=== PATIENT | female | born 1930 | race American Indian/Alaskan Native ===

== ENCOUNTER 2020-04-03 12:49 | Observation (INO) | payer MEDICARE ==
--- NOTE | 2020-04-03 13:52 | Emergency Department Report ---
HPI - General Chief Complaint: Recheck/Abnormal Lab/Rx Time Seen by Provider: 04/03/20 13:15 - HPI HPI: This is an 89-year-old female who presents to the emergency department via EMS from her [facility] facility for evaluation of abnormal labs. The patient has a history of endometrial cancer, coronary artery disease, CHF, chronic kidney disease, dementia, hypertension, Parkinson's disease and is a poor historian. She has labs with her that were drawn and resulted from today that shows a hemoglobin of 5. ED Past Medical Hx - Past Medical History Previous Medical History?: Yes Hx Hypertension: Yes Hx CVA: No Hx Heart Attack/AMI: No Hx Congestive Heart Failure: Yes Hx Diabetes: No Hx Deep Vein Thrombosis: No Hx Pulmonary Embolism: No Hx GERD: No Hx Liver Disease: No Hx Renal Disease: No Hx of Cancer: Yes (Endometrial) Hx Sickle Cell Disease: No Hx Arthritis: Yes Hx Headaches / Migraines: No Hx Seizures: No Hx Kidney Stones: No Hx Psychiatric Treatment: Yes Hx Asthma: No Hx COPD: Yes Hx Tuberculosis: No Hx Dementia: Yes Hx HIV: No Additional medical history: hx of Parkinson's Disease,anemia, chronic kidney disease, dementia, abnormal posture, contracture left and right hand, artherosc lerotic heart disease - Social History Smoking Status: Unknown if ever smoked - Medications Home Medications: Home Medications Medication Instructions Recorded Confirmed Last Taken Type Megestrol Acetate [Megace] 400 mg PO DAILY 30 Days ml 01/18/16 05/03/18 Unknown Rx Metoprolol [Lopressor TAB] 25 mg PO BID #60 tablet 05/10/18 Unknown Rx ED Review of Systems ROS: Stated complaint: LOW H&H Other details as noted in HPI Comment: Unobtainable due to pts medical conditions Physical Exam - Physical Exam Physical Exam: GENERAL: The patient is well-developed well-nourished. HENT: Normocephalic. Atraumatic. Patient has moist mucous membranes. EYES: Extraocular motions are intact. Pale conjunctiva. NECK: Supple. Trachea is midline. CHEST/LUNGS: Clear to auscultation. There is no respiratory distress noted. HEART/CARDIOVASCULAR: Regular. There is no tachycardia. ABDOMEN: Abdomen is soft, nontender. Patient has normal bowel sounds. SKIN: Skin is warm and dry. NEURO: Patient is awake but nonverbal. Withdraws from painful stimuli. MUSCULOSKELETAL: There is no tenderness to palpation. Contracted bilateral upper extremities. ED Course - Reevaluation(s) Reevaluation #1: 04/03/20 19:54 Lab Results 04/03/20 04/03/20 04/03/20 Range/Units 15:07 15:07 15:07 WBC 12.2 H (4.5-11.0) K/mm3 RBC 2.03 L (3.65-5.03) M/mm3 Hgb 5.4 L* (10.1-14.3) gm/dl Hct 17.1 L* (30.3-42.9) % MCV 84 (79-97) fl MCH 27 L (28-32) pg MCHC 32 (30-34) % RDW 20.0 H (13.2-15.2) % Plt Count 399 (140-440) K/mm3 Lymph % (Auto) 6.4 L (13.4-35.0) % [place] % (Auto) 6.3 (0.0-7.3) % Eos % (Auto) 0.0 (0.0-4.3) % Baso % (Auto) 0.1 (0.0-1.8) % Lymph # (Auto) 0.8 L (1.2-5.4) K/mm3 [place] # (Auto) 0.8 (0.0-0.8) K/mm3 Eos # (Auto) 0.0 (0.0-0.4) K/mm3 Baso # (Auto) 0.0 (0.0-0.1) K/mm3 Seg Neutrophils % 87.2 H (40.0-70.0) % Seg Neutrophils # 10.6 H (1.8-7.7) K/mm3 PT 14.8 (12.2-14.9) Sec. INR 1.15 H (0.87-1.13) APTT 27.2 (24.2-36.6) Sec. Sodium 135 L (137-145) mmol/L Potassium 5.2 H (3.6-5.0) mmol/L Chloride 97.9 L (98-107) mmol/L Carbon Dioxide 28 (22-30) mmol/L Anion Gap 14 mmol/L BUN 38 H (7-17) mg/dL Creatinine 0.8 (0.6-1.2) mg/dL Estimated GFR > 60 ml/min BUN/Creatinine Ratio 48 % Glucose 126 H (65-100) mg/dL Calcium 9.5 (8.4-10.2) mg/dL Magnesium 2.60 H (1.7-2.3) mg/dL Total Bilirubin < 0.20 (0.1-1.2) mg/dL AST 22 (5-40) units/L ALT 21 (7-56) units/L Alkaline Phosphatase 98 (35-129) units/L Total Protein 7.0 (6.3-8.2) g/dL Albumin 2.0 L (3.9-5) g/dL Albumin/Globulin Ratio 0.4 % Blood Type Antibody Screen Crossmatch 04/03/20 Range/Units 15:07 WBC (4.5-11.0) K/mm3 RBC (3.65-5.03) M/mm3 Hgb (10.1-14.3) gm/dl Hct (30.3-42.9) % MCV (79-97) fl MCH (28-32) pg MCHC (30-34) % RDW (13.2-15.2) % Plt Count (140-440) K/mm3 Lymph % (Auto) (13.4-35.0) % [place] % (Auto) (0.0-7.3) % Eos % (Auto) (0.0-4.3) % Baso % (Auto) (0.0-1.8) % Lymph # (Auto) (1.2-5.4) K/mm3 [place] # (Auto) (0.0-0.8) K/mm3 Eos # (Auto) (0.0-0.4) K/mm3 Baso # (Auto) (0.0-0.1) K/mm3 Seg Neutrophils % (40.0-70.0) % Seg Neutrophils # (1.8-7.7) K/mm3 PT (12.2-14.9) Sec. INR (0.87-1.13) APTT (24.2-36.6) Sec. Sodium (137-145) mmol/L Potassium (3.6-5.0) mmol/L Chloride (98-107) mmol/L Carbon Dioxide (22-30) mmol/L Anion Gap mmol/L BUN (7-17) mg/dL Creatinine (0.6-1.2) mg/dL Estimated GFR ml/min BUN/Creatinine Ratio % Glucose (65-100) mg/dL Calcium (8.4-10.2) mg/dL Magnesium (1.7-2.3) mg/dL Total Bilirubin (0.1-1.2) mg/dL AST (5-40) units/L ALT (7-56) units/L Alkaline Phosphatase (35-129) units/L Total Protein (6.3-8.2) g/dL Albumin (3.9-5) g/dL Albumin/Globulin Ratio % Blood Type B POSITIVE Antibody Screen Negative Crossmatch See Detail Reevaluation #2: 04/03/20 20:15 Vital Signs 04/03/20 04/03/20 04/03/20 15:37 19:31 20:01 Temperature 97.9 F Pulse Rate 100 H 109 H 118 H Respiratory 16 17 23 Rate Blood Pressure 109/64 134/65 O2 Sat by Pulse 94 100 100 Oximetry - EJ/Peripheral Line Arm R Time Out Performed: Yes Indications: nurses unable to establis Skin Cleansed in Sterile Fashion: Yes Size: 22 Dressing Placed: Tegaderm, tape Patient Tolerated Procedure: well ED Medical Decision Making - Lab Data Result diagrams: 04/03/20 15:07 04/03/20 15:07 - Medical Decision Making Patient was sent in from her nursing facility with abnormal labs from this morning that showed a hemoglobin of 5 and hyperkalemia with a potassium of 5.7. The repeat labs done in the emergency department shows a hemoglobin of 5.4 and the hyperkalemia is at 5.2. Patient will most likely need 2 units of packed red blood cells for transfusion but we will start with 1. The rest of the labs have been mostly unremarkable. Vital signs reassuring throughout her ED course thus far. The patient has been accepted for admission by the hospitalist, Dr. Mancilla. Critical Care Time: Yes Critical care time in (mins) excluding proc time.: 35 Critical care attestation.: If time is entered above; I have spent that time in minutes in the direct care of this critically ill patient, excluding procedure time. Critical care time was spent on this patient in doing her initial evaluation, multiple reevaluations, ordering and interpretation of labs and imaging, orderi ng of blood for transfusion. Critical Care Time: 35 minutes ED Disposition Clinical Impression: Endometrial cancer, Anemia requiring transfusions, Hyperkalemia Dementia Qualifiers: Dementia type: unspecified type Dementia behavioral disturbance: without behavioral disturbance Qualified Code(s): F03.90 - Unspecified dementia without behavioral disturbance Disposition: DC-09 OP ADMIT IP TO THIS HOSP Is pt being admited?: Yes Condition: Serious Time of Disposition: 16:12
[2020-04-03 15:38] LABS: Basophils % (Auto) 0.1 % (0.0-1.8); Lymphocytes # (Auto) 0.8 K/mm3 (1.2-5.4); Lymphocytes % (Auto) 6.4 % (13.4-35.0); Mean Corpuscular HGB Conc 32 % (30-34); Mean Corpuscular Volume 84 fl (79-97); Monocytes # (Auto) 0.8 K/mm3 (0.0-0.8); Monocytes % (Auto) 6.3 % (0.0-7.3); Platelet Count 399 K/mm3 (140-440); Red Blood Count 2.03 M/mm3 (3.65-5.03)
[2020-04-03 15:47] LABS: Alanine Aminotransferase 21 units/L (7-56); BUN/Creatinine Ratio 48; Blood Urea Nitrogen 38 mg/dL (7-17); Calcium 9.5 mg/dL (8.4-10.2); Hemolysis Index 2
[2020-04-03 15:51] LABS: INR 1.15 (0.87-1.13); Partial Thromboplastin Time 27.2 Sec. (24.2-36.6)
[2020-04-03 15:55] LABS: Hematocrit 17.1 % (30.3-42.9); Hemoglobin 5.4 gm/dl (10.1-14.3)
[2020-04-03] MEDS ORDERED: SODIUM CHLORIDE 0.9% 500 ML 500 ML IV ONE ×2 (15:56→21:54)
[2020-04-03] MEDS ORDERED: SODIUM CHLORIDE 0.9% 500 ML 500 ML ONE (20:03)
[2020-04-03] MEDS ORDERED: MEGESTROL ACETATE 400 MG PO SCH (21:45)
--- NOTE | 2020-04-03 21:48 | History and Physical Report ---
History of Present Illness Date of examination: 04/03/20 Date of admission: 04/03/20 18:02 Chief complaint: Sent from [facility] for low hemoglobin and hematocrit History of present illness: 89-year-old female presents to the emergency department via EMS from [facility] for evaluation of low hemoglobin and hematocrit. Patient has history of endometrial cancer, coronary artery disease, CHF, chronic kidney disease, dementia and hypertension. Patient also has parkinsonism. Patient is a poor historian. History gathered from the chart from [facility]. Patient lying in bed comfortably. Not complaining. - Past Medical History Previous Medical History?: Yes --Hypertension: Yes --Congestive Heart Failure: Yes --Endometrial cancer (Endometrial) --Arthritis: Yes --Psychiatric Treatment: Yes --COPD: Yes --Dementia: Yes Additional medical history: hx of Parkinson's Disease,anemia, chronic kidney disease, dementia, abnormal posture, contracture left and right hand, artherosclerotic heart disease -- surgical history Not available - Social History Smoking Status: Unknown if ever smoked Family history unknown - Medications Home Medications: Home Medications Medication Instructions Recorded Confirmed Last Taken Type Megestrol Acetate [Megace] 400 mg PO DAILY 30 Days ml 01/18/16 05/03/18 Unknown Rx Metoprolol [Lopressor TAB] 25 mg PO BID #60 tablet 05/10/18 Unknown Rx Review of Systems Constitutional generalized weakness HEENT no sore throat no post nasal drip no diplopia Neck no neck stiffness no lymph gland enlargement Chest and lungs no shortness of breath cough or wheezing CVS no chest pain no diaphoresis no palpitations GI no nausea no vomiting no diarrhea Genitourinary system no dysuria no flank pain Musculoskeletal system no muscle pains no joint pains [employer]GER no syncope no seizures Skin no rash no itching Psychiatric no depression no homicidal or suicidal tendencies Hematologic anemia requiring blood transfusions Endocrine no polydipsia no polyuria no cold intolerance no heat intolerance Medications and Allergies Allergies Allergy/AdvReac Type Severity Reaction Status Date / Time No Known Allergies Allergy Verified 01/16/16 23:42 Home Medications Medication Instructions Recorded Confirmed Last Taken Type Megestrol Acetate [Megace] 400 mg PO DAILY 30 Days ml 01/18/16 05/03/18 Unknown Rx Metoprolol [Lopressor TAB] 25 mg PO BID #60 tablet 05/10/18 Unknown Rx Active Meds: Active Medications Metoprolol Tartrate (Metoprolol) 25 mg PO BID [facility] Miscellaneous Medication (Megestrol Acetate [Megace]) 400 mg PO DAILY [facility] Exam - Constitutional Vitals: Temp Pulse Resp BP Pulse Ox 97.9 F 101 H 17 131/65 97 04/03/20 20:01 04/03/20 21:21 04/03/20 21:21 04/03/20 21:21 04/03/20 21:21 General appearance: Present: no acute distress, well-nourished - EENT Eyes: Present: PERRL ENT: hearing intact, clear oral mucosa, other (Pale mucous membranes) - Neck Neck: Present: supple, normal ROM - Respiratory Respiratory effort: normal Respiratory: bilateral: CTA - Cardiovascular Heart rate: 78 Rhythm: regular Heart Sounds: Present: S1 & S2. Absent: rub, click - Extremities Extremities: pulses symmetrical, No edema Peripheral Pulses: within normal limits - Abdominal General gastrointestinal: Present: soft, non-tender, non-distended, normal bowel sounds Female genitourinary: Present: normal - Integumentary Integumentary: Present: clear, warm, dry - Musculoskeletal Musculoskeletal: strength equal bilaterally, generalized weakness - Psychiatric Psychiatric: depressed, other (Lethargic) - Neurologic Neurologic: CNII-XII intact, moves all extremities - Allied Health Allied health notes reviewed: nursing, case management Results - Labs CBC & Chem 7: 04/03/20 15:07 04/03/20 15:07 Labs: Laboratory Last Values WBC 12.2 K/mm3 (4.5-11.0) H 04/03/20 15:07 RBC 2.03 M/mm3 (3.65-5.03) L 04/03/20 15:07 Hgb 5.4 gm/dl (10.1-14.3) L* 04/03/20 15:07 Hct 17.1 % (30.3-42.9) L* 04/03/20 15:07 MCV 84 fl (79-97) 04/03/20 15:07 MCH 27 pg (28-32) L 04/03/20 15:07 MCHC 32 % (30-34) 04/03/20 15:07 RDW 20.0 % (13.2-15.2) H 04/03/20 15:07 Plt Count 399 K/mm3 (140-440) 04/03/20 15:07 Lymph % (Auto) 6.4 % (13.4-35.0) L 04/03/20 15:07 [place] % (Auto) 6.3 % (0.0-7.3) 04/03/20 15:07 Eos % (Auto) 0.0 % (0.0-4.3) 04/03/20 15:07 Baso % (Auto) 0.1 % (0.0-1.8) 04/03/20 15:07 Lymph # (Auto) 0.8 K/mm3 (1.2-5.4) L 04/03/20 15:07 [place] # (Auto) 0.8 K/mm3 (0.0-0.8) 04/03/20 15:07 Eos # (Auto) 0.0 K/mm3 (0.0-0.4) 04/03/20 15:07 Baso # (Auto) 0.0 K/mm3 (0.0-0.1) 04/03/20 15:07 Seg Neutrophils % 87.2 % (40.0-70.0) H 04/03/20 15:07 Seg Neutrophils # 10.6 K/mm3 (1.8-7.7) H 04/03/20 15:07 PT 14.8 Sec. (12.2-14.9) 04/03/20 15:07 INR 1.15 (0.87-1.13) H 04/03/20 15:07 APTT 27.2 Sec. (24.2-36.6) 04/03/20 15:07 Sodium 135 mmol/L (137-145) L 04/03/20 15:07 Potassium 5.2 mmol/L (3.6-5.0) H 04/03/20 15:07 Chloride 97.9 mmol/L (98-107) L 04/03/20 15:07 Carbon Dioxide 28 mmol/L (22-30) 04/03/20 15:07 Anion Gap 14 mmol/L 04/03/20 15:07 BUN 38 mg/dL (7-17) H 04/03/20 15:07 Creatinine 0.8 mg/dL (0.6-1.2) 04/03/20 15:07 Estimated GFR > 60 ml/min 04/03/20 15:07 BUN/Creatinine Ratio 48 % 04/03/20 15:07 Glucose 126 mg/dL (65-100) H 04/03/20 15:07 Calcium 9.5 mg/dL (8.4-10.2) 04/03/20 15:07 Magnesium 2.60 mg/dL (1.7-2.3) H 04/03/20 15:07 Total Bilirubin < 0.20 mg/dL (0.1-1.2) 04/03/20 15:07 AST 22 units/L (5-40) 04/03/20 15:07 ALT 21 units/L (7-56) 04/03/20 15:07 Alkaline Phosphatase 98 units/L (35-129) 04/03/20 15:07 Total Protein 7.0 g/dL (6.3-8.2) 04/03/20 15:07 Albumin 2.0 g/dL (3.9-5) L 04/03/20 15:07 Albumin/Globulin Ratio 0.4 % 04/03/20 15:07 Blood Type B POSITIVE 04/03/20 15:07 Antibody Screen Negative 04/03/20 15:07 Crossmatch See Detail 04/03/20 15:07 - Imaging and Cardiology EKG: report reviewed Aguilar/IV: IV Catheter Type [right Peripheral IV brachial] Assessment and Plan Advance Directives: Yes (Full code) Plan of care discussed with patient/family: Yes - Patient Problems (1) Anemia requiring transfusions Current Visit: Yes Status: Acute Plan to address problem: Patient will be transfused 2 units of red blood cells Patient will get a PICC line in the morning (2) Endometrial cancer Onset Date: 01/18/16 Current Visit: Yes Status: Inactive Plan to address problem: In remission (3) Hypertension Current Visit: Yes Status: Chronic Plan to address problem: Continue antihypertensive (4) Hyponatremia Current Visit: Yes Status: Acute Plan to address problem: IV normal saline for now (5) Hyperkalemia Current Visit: Yes Status: Acute Plan to address problem: Treated (6) Malnutrition Current Visit: Yes Status: Chronic Qualifiers: Protein-calorie malnutrition severity: severe Plan to address problem: Dietitian consult Nutrition supplements (7) DVT prophylaxis Current Visit: Yes Status: Acute Plan to address problem: On heparin and GI prophylaxis
[2020-04-03] MEDS ORDERED: ONDANSETRON 4 MG/2 ML INJ IV PRN (21:50)
[2020-04-03] MEDS ORDERED: HYDROmorphone 1 MG/1 ML INJ IV PRN (21:50)
[2020-04-03] MEDS ORDERED: oxyCODONE /ACETAMINOPHEN 5-325MG TAB PO PRN (21:50)
[2020-04-03] MEDS ORDERED: ACETAMINOPHEN 325 MG TAB PO PRN (21:50)
[2020-04-03] MEDS ORDERED: FAMOTIDINE 20 MG/2 ML INJ IV SCH (22:00)
[2020-04-04] MEDS: FAMOTIDINE 20 MG/2 ML INJ IV SCH ×2 (01:58→10:38)
[2020-04-04] MEDS: METOPROLOL TARTRATE 25 MG TAB PO SCH ×3 (01:58→22:08)
[2020-04-04] MEDS: SODIUM CHLORIDE 0.9% 1000 ML 1,000 ML IV SCH ×2 (10:38→23:46)
[2020-04-04] MEDS ORDERED: SIMPLE SYRUP 15 ML FEEDTUBE PRN ×2 (11:35)
[2020-04-04] MEDS ORDERED: LIPASE 10,500/PROTEASE 25,000/AMYLASE 43,750 (UNITS) DR CAP FEEDTUBE PRN (11:35)
[2020-04-04] MEDS ORDERED: SODIUM BICARBONATE 325 MG TAB FEEDTUBE PRN (11:35)
[2020-04-04] MEDS: MEGESTROL 400 MG/10 ML ORAL LIQD PO SCH ×2 (12:03→21:50)
[2020-04-04 13:53] LABS: Basophils % (Auto) 0.3 % (0.0-1.8); Hematocrit 21.2 % (30.3-42.9); Lymphocytes # (Auto) 0.8 K/mm3 (1.2-5.4); Mean Corpuscular HGB Conc 33 % (30-34); Mean Corpuscular Volume 85 fl (79-97); Monocytes # (Auto) 0.8 K/mm3 (0.0-0.8); Monocytes % (Auto) 8.5 % (0.0-7.3); Platelet Count 376 K/mm3 (140-440); Red Blood Count 2.49 M/mm3 (3.65-5.03); Red Cell Distribution Width 17.7 % (13.2-15.2)
[2020-04-04 14:16] LABS: Alanine Aminotransferase 21 units/L (7-56); Albumin 2.3 g/dL (3.9-5); Blood Urea Nitrogen 35 mg/dL (7-17); Hemolysis Index 2
[2020-04-04 14:17] LABS: BUN/Creatinine Ratio 50
--- NOTE | 2020-04-04 15:56 | Progress Note ---
Assessment and Plan - Patient Problems (1) Anemia requiring transfusions Current Visit: Yes Status: Acute Plan to address problem: Most likely secondary to vaginal bleeding. Patient on Megace for this. Has been out to PLANT ANATOMIST. The differential diagnosis was endometrial cancer. I did call the daughter which states that it was not confirmed with biopsy but given the history and presentation as well as radiologic findings was consistent with endometrial cancer. Family expressed concerns they do not want to be as aggressive and seek PLANT ANATOMIST consult with Pap smear and or colonoscopy. Given patient's poor functional status. We will continue treat with Megace for bleeding. Will restart Megace. (2) Hyperkalemia Current Visit: Yes Status: Acute Plan to address problem: Corrected. (3) Dementia Current Visit: Yes Status: Chronic Qualifiers: Dementia type: unspecified type Dementia behavioral disturbance: without behavioral disturbance Qualified Code(s): F03.90 - Unspecified dementia without behavioral disturbance Plan to address problem: Patient significant cognitive decline and decompensation. Patient on PEG tube feedings nonverbal unable to make needs known. May discuss with family about hospice if endometrial cancer is still considered. (4) Hypertension Current Visit: Yes Status: Chronic Plan to address problem: Would not be too aggressive given patient's recent history of bleeding. (5) Malnutrition Current Visit: Yes Status: Chronic Qualifiers: Protein-calorie malnutrition severity: severe Plan to address problem: Patient malnourished on PEG tube. Severe protein deficiency malnutrition. Will adjust PEG tube feedings with dietitian consult. Can do that upon return. (6) Endometrial cancer Onset Date: 01/18/16 Current Visit: Yes Status: Inactive Plan to address problem: Most likely endometrial cancer again spoke with daughter they do not think was confirmed with biopsy. Patient may be candidate for hospice will mention that to daughter (7) MARTHA (acute kidney injury) Current Visit: No Status: Acute Plan to address problem: Secondary to dehydration blood loss anemia as well as prerenal azotemia. Will c orrect with blood transfusion IV fluids. (8) Atrial fibrillation with RVR Current Visit: No Status: Acute Plan to address problem: Patient is regular today. Also not a candidate for anticoagulation secondary to bleeding. Subjective Date of service: 04/04/20 Principal diagnosis: Anemia Interval history: Patient 89 years old with history of dementia, adult failure to thrive, endometrial cancer (daughter states not confirmed by biopsy.) Previous PLANT ANATOMIST. Presents from detention facility [facility] with lab which shows anemia with a hemoglobin of 5. Patient brought in today given 2 units packed red blood cells and corrected. Patient pleasantly confused. With feeding tube at bedside. Hospital course complicated by hematoma right arm during infusion. Objective - Constitutional Vitals: Vital Signs - 12hr 04/04/20 04/04/20 04/04/20 03:59 04:29 04:59 Temperature 98 F 97.6 F 98 F Pulse Rate 68 89 89 Respiratory 18 18 20 Rate Blood Pressure 110/67 125/87 129/78 O2 Sat by Pulse 92 100 98 Oximetry 04/04/20 04/04/20 04/04/20 05:29 06:06 11:52 Temperature 98 F 97.9 F Pulse Rate 85 82 Respiratory 20 20 Rate Blood Pressure 140/90 136/85 105/67 O2 Sat by Pulse 96 95 Oximetry 04/04/20 11:53 Temperature Pulse Rate 93 H Respiratory Rate Blood Pressure O2 Sat by Pulse 94 Oximetry General appearance: Present: no acute distress, well-nourished - EENT Eyes: PERRL, EOM intact ENT: hearing intact, clear oral mucosa Ears: bilateral: normal - Neck Neck: supple, normal ROM - Respiratory Respiratory effort: normal Respiratory: bilateral: CTA - Breasts Breasts: normal - Cardiovascular Rhythm: regular Heart Sounds: Present: S1 & S2. Absent: gallop, rub Extremities: pulses intact, No edema, normal color, Full ROM Extremity abnormal: other (Right arm hematoma.) - Gastrointestinal General gastrointestinal: Present: soft, non-tender, non-distended, normal bowel sounds, other (PEG tube site looks good.) - Genitourinary Female genitourinary: normal - Integumentary Integumentary: clear, warm, dry - Musculoskeletal Musculoskeletal: strength equal bilaterally, generalized weakness - Neurologic Neurologic: moves all extremities - Psychiatric Psychiatric: other (Significantly poor cognition.) - Labs CBC & Chem 7: 04/04/20 13:33 04/04/20 13:33 Labs: Abnormal lab results 04/03/20 04/03/20 04/04/20 Range/Units 15:07 15:07 13:33 RBC 2.49 L (3.65-5.03) M/mm3 Hgb 5.4 L* 7.0 L (10.1-14.3) gm/dl Hct 17.1 L* 21.2 L (30.3-42.9) % RDW 17.7 H (13.2-15.2) % Lymph % (Auto) 9.0 L (13.4-35.0) % [place] % (Auto) 8.5 H (0.0-7.3) % Lymph # (Auto) 0.8 L (1.2-5.4) K/mm3 Seg Neutrophils % 82.2 H (40.0-70.0) % BUN (7-17) mg/dL Hemoglobin A1c (4-6) % Albumin (3.9-5) g/dL Crossmatch See Detail 04/04/20 04/04/20 Range/Units 13:33 13:33 RBC (3.65-5.03) M/mm3 Hgb (10.1-14.3) gm/dl Hct (30.3-42.9) % RDW (13.2-15.2) % Lymph % (Auto) (13.4-35.0) % [place] % (Auto) (0.0-7.3) % Lymph # (Auto) (1.2-5.4) K/mm3 Seg Neutrophils % (40.0-70.0) % BUN 35 H (7-17) mg/dL Hemoglobin A1c < 4.0 L (4-6) % Albumin 2.3 L (3.9-5) g/dL Crossmatch
[2020-04-05 10:33] LABS: Blood Urea Nitrogen 32 mg/dL (7-17); Hemolysis Index 2
[2020-04-05 10:34] LABS: BUN/Creatinine Ratio 46
[2020-04-05 10:42] LABS: Basophils % (Auto) 0.2 % (0.0-1.8); Eosinophils % (Auto) 0.3 % (0.0-4.3); Hematocrit 23.1 % (30.3-42.9); Hemoglobin 7.6 gm/dl (10.1-14.3); Lymphocytes # (Auto) 0.9 K/mm3 (1.2-5.4); Lymphocytes % (Auto) 8.7 % (13.4-35.0); Mean Corpuscular HGB Conc 33 % (30-34); Mean Corpuscular Volume 86 fl (79-97); Monocytes # (Auto) 0.9 K/mm3 (0.0-0.8); Monocytes % (Auto) 8.3 % (0.0-7.3); Platelet Count 415 K/mm3 (140-440); Red Blood Count 2.68 M/mm3 (3.65-5.03); Red Cell Distribution Width 18.1 % (13.2-15.2)
[2020-04-05] MEDS: MEGESTROL 400 MG/10 ML ORAL LIQD PO SCH (10:57)
[2020-04-05] MEDS: FAMOTIDINE 20 MG/2 ML INJ IV SCH (10:57)
[2020-04-05] MEDS: METOPROLOL TARTRATE 25 MG TAB PO SCH ×2 (10:58→22:49)
--- NOTE | 2020-04-05 11:40 | Discharge Summary ---
Providers - Providers Date of Admission: 04/03/20 18:02 Date of discharge: 04/05/20 Attending physician: MERRY POLK 04/03/20 21:55 Consult to Dietitian/Nutrition [CONS] Routine Physician Instructions: Reason For Exam: Reason for Consult: Pt needs oral supplement 04/03/20 23:12 Consult to PICC Line RN [CONS] Routine Reason For Exam: Unable to place INT Type Line:: Midline 04/04/20 04:54 Consult to Wound/ET Nurse [CONS] Routine Reason For Exam: wound eval R&L ISCHIUM, SACRAL 04/04/20 04:56 Consult to Dietitian/Nutrition [CONS] Routine Physician Instructions: Reason For Exam: Reason for Consult: Write/Manage Tube Feeding Primary care physician: EMERALD ALONZO Hospitalization Condition: Serious Hospital course: Patient 89-year-old female that presents with a decreased hemoglobin and hematocrit. Patient had hematocrit of 5. Patient has advanced dementia, endometrial cancer presents with a symptomatic anemia unable to make needs known extremely poor cognition from advanced dementia. Patient was brought in transfused and transfused stabilize. Patient H&H remained 7. Discussed with family options about colonoscopy and MANAGING CONSULTANT CLINICAL PROFESSOR exam. I agree with being more conservative. Will transfer patient back to the nursing facility. She is on Megace for this bleeding that she has been on for quite some time. Would ensure this is restarted. May benefit from hospice services. Disposition: DC/TX-03 SNF W [facility] CERT - Discharge Diagnoses (1) Anemia requiring transfusions Status: Acute Comment: Transfused 2 units packed red blood cells hemoglobin hematocrit stabilized. At risk for repeat secondary to underlying endometrial CA. (2) Hyperkalemia Status: Acute Comment: Corrected. (3) Dementia Status: Chronic Qualifiers: Dementia type: unspecified type Dementia behavioral disturbance: without behavioral disturbance Qualified Code(s): F03.90 - Unspecified dementia without behavioral disturbance Comment: Advanced dementia mood stable. Unable to make needs known PEG tube feedings. (4) Hypertension Status: Chronic Comment: Fair control. (5) Malnutrition Status: Chronic Qualifiers: Protein-calorie malnutrition severity: severe Comment: Will need to advance PEG tube feedings albumin less than 2 0. Dietitian consult. (6) Endometrial cancer Status: Inactive (7) MARTHA (acute kidney injury) Status: Acute (8) Atrial fibrillation with RVR Status: Acute Comment: Rate very well controlled. Core Measure Documentation - Palliative Care Palliative Care/ Comfort Measures: Palliative Care/Comfort Measures - Core Measures Any of the following diagnoses?: none Exam - Constitutional Vitals: Temp Pulse Resp BP Pulse Ox 98.1 F 111 H 16 135/84 94 04/05/20 10:36 04/05/20 10:58 04/05/20 10:36 04/05/20 10:58 04/05/20 10:36 General appearance: Present: no acute distress, cachectic - EENT Eyes: Present: PERRL ENT: clear oral mucosa, hearing decreased, poor dentition, other - Neck Neck: Present: supple, normal ROM - Respiratory Respiratory effort: normal Respiratory: bilateral: CTA - Cardiovascular Heart Sounds: Present: S1 & S2. Absent: rub, click - Extremities Extremities: pulses symmetrical, No edema Peripheral Pulses: within normal limits - Abdominal General gastrointestinal: Present: soft, non-tender, non-distended, normal bowel sounds. Absent: hepatomegaly, splenomegaly Female genitourinary: Present: normal - Integumentary Integumentary: Present: clear, warm, dry - Musculoskeletal Musculoskeletal: generalized weakness - Psychiatric Psychiatric: cooperative, other (Poor cognition.) - Neurologic Neurologic: CNII-XII intact, other (Bedbound) Plan Activity: avoid flexion Weight Bearing Status: Non-Weight Bearing Diet: other (peg) Health Concerns: i did speak with daughter about hospice services and end of life care Follow up with: EMERALD ALONZO MD [Primary Care Provider] - 3-5 Days
[2020-04-06] MEDS: SODIUM CHLORIDE 0.9% 1000 ML 1,000 ML IV SCH (03:54)
[2020-04-06] MEDS: METOPROLOL TARTRATE 25 MG TAB PO SCH (09:04)
[2020-04-06] MEDS: MEGESTROL 400 MG/10 ML ORAL LIQD PO SCH (09:04)
[2020-04-06] MEDS ORDERED: FAMOTIDINE 20 MG TAB FEEDTUBE SCH (10:00)
--- NOTE | 2020-04-06 15:31 | Discharge Summary ---
Providers - Providers Date of Admission: 04/03/20 18:02 Date of discharge: 04/06/20 Attending physician: MERRY POLK 04/03/20 21:55 Consult to Dietitian/Nutrition [CONS] Routine Physician Instructions: Reason For Exam: Reason for Consult: Pt needs oral supplement 04/03/20 23:12 Consult to PICC Line RN [CONS] Routine Reason For Exam: Unable to place INT Type Line:: Midline 04/04/20 04:54 Consult to Wound/ET Nurse [CONS] Routine Reason For Exam: wound eval R&L ISCHIUM, SACRAL 04/04/20 04:56 Consult to Dietitian/Nutrition [CONS] Routine Physician Instructions: Reason For Exam: Reason for Consult: Write/Manage Tube Feeding Primary care physician: EMERALD ALONZO Hospitalization Condition: Serious Pertinent studies: Anemia stabilized status post transfusion vaginal bleeding thought to be secondary to endometrial cancer. Disposition: DC/[place]-03 [facility] CERT - Discharge Diagnoses (1) Anemia requiring transfusions Status: Acute Comment: Transfused 2 units packed red blood cells hemoglobin hematocrit stabilized. At risk for repeat secondary to underlying endometrial CA. (2) Hyperkalemia Status: Acute Comment: Corrected. (3) Dementia Status: Chronic Qualifiers: Dementia type: unspecified type Dementia behavioral disturbance: without b ehavioral disturbance Qualified Code(s): F03.90 - Unspecified dementia without behavioral disturbance Comment: Advanced dementia mood stable. Unable to make needs known PEG tube feedings. (4) Hypertension Status: Chronic Comment: Fair control. (5) Malnutrition Status: Chronic Qualifiers: Protein-calorie malnutrition severity: severe Comment: Will need to advance PEG tube feedings albumin less than 2 0. Dietitian consult. (6) Endometrial cancer Status: Inactive (7) MARTHA (acute kidney injury) Status: Acute (8) Atrial fibrillation with RVR Status: Acute Comment: Rate very well controlled. Core Measure Documentation - Palliative Care Palliative Care/ Comfort Measures: Palliative Care/Comfort Measures - Core Measures Any of the following diagnoses?: none Exam - Constitutional Vitals: Temp Pulse Resp BP Pulse Ox 97.1 F L 100 H 20 126/82 100 04/06/20 06:08 04/06/20 09:04 04/06/20 06:08 04/06/20 09:04 04/06/20 06:08 General appearance: Present: no acute distress, well-nourished, other (Advanced dementia confused) - EENT Eyes: Present: PERRL ENT: hearing decreased, poor dentition - Neck Neck: Present: supple, normal ROM - Respiratory Respiratory effort: normal Respiratory: bilateral: CTA, diminished - Cardiovascular Heart Sounds: Present: S1 & S2. Absent: rub, click - Extremities Extremities: pulses symmetrical, No edema Extremity abnormal: other (Functional quadriplegia) Peripheral Pulses: within normal limits - Abdominal General gastrointestinal: Present: soft, normal bowel sounds, other (PEG tube feedings) Female genitourinary: Present: normal - Integumentary Integumentary: Present: clear, warm, dry - Musculoskeletal Musculoskeletal: generalized weakness - Psychiatric Psychiatric: cooperative, other (Poor cognition) - Neurologic Neurologic: CNII-XII intact, moves all extremities Plan Activity: fall precautions Weight Bearing Status: Non-Weight Bearing Diet: other (PEG tube feedings) Health Concerns: i did speak with daughter about hospice services and end of life care Follow up with: EMERALD ALONZO MD [Primary Care Provider] - 3-5 Days
--- NOTE | 2020-04-06 15:34 | Event Note ---
Date: 04/06/20 hold discharge because of positive covid test
[2020-04-06 16:50] VITALS: BP 147/76
== END 2020-04-06 17:50 ==
LOC: ED 12:49 → 3A 18:02
PROVIDERS: ADMIT Internal Medicine; ATTEND Internal Medicine
DX: U07.1 COVID-19 (principal); D64.9 Anemia, unspecified; C54.1 Malignant neoplasm of endometrium; I13.0 Hypertensive heart and chronic kidney disease with heart failure and stage 1 through stage 4 chronic kidney disease, or unspecified chronic kidney disease; I50.9 Heart failure, unspecified; N18.9 Chronic kidney disease, unspecified; I25.10 Atherosclerotic heart disease of native coronary artery without angina pectoris; N17.9 Acute kidney failure, unspecified; I48.20 Chronic atrial fibrillation, unspecified; E87.5 Hyperkalemia; E87.1 Hypo-osmolality and hyponatremia; E46 Unspecified protein-calorie malnutrition; J44.9 Chronic obstructive pulmonary disease, unspecified; F02.80 Dementia in other diseases classified elsewhere, unspecified severity, without behavioral disturbance, psychotic disturbance, mood disturbance, and anxiety; M19.90 Unspecified osteoarthritis, unspecified site; G20 Parkinson's disease; Z79.899 Other long term (current) drug therapy
CPT/HCPCS: 36415; 36430; 80048; 80053; 82962; 83036; 83735; 85025; 85610; 85730; 86850; 86900; 86901; 86920; 96361; 96374; 96375; 96376; 99291; G0378; J1170; J7030; P9016; U0003; J7040